=== PATIENT | male | born 1965 | race Two or more races ===

== ENCOUNTER 2022-11-26 22:48 | Inpatient (IN) | payer MEDICAID, OTHER ==
[~2022-11-26] VITALS: Ht 170.2 cm; Wt 79.1 kg
[2022-11-27] MEDS ORDERED: VANCOMYCIN 1GM/250ML 250 ML IV ONE (01:45)
[2022-11-27 02:13] LABS: Basophils # (auto) 0 10 ^3/uL (0-0.2); Basophils % (auto) 0.6 % (0.0-2.0); Eosinophils # (auto) 0.4 10 ^3/uL (0-0.8); Eosinophils % (auto) 4.9 % (0.0-7.0); Hematocrit 45.7 % (41.0-53.0); Hemoglobin 15.5 g/dL (13.5-17.5); Lymphocytes # (auto) 1.8 10 ^3/uL (0.4-5.4); Lymphocytes % (auto) 24.9 % (10.0-50.0); Mean Corpuscular Hemoglobin 31.2 pg (28.0-32.0); Mean Corpuscular Hgb Conc. 33.9 g/dL (32.0-36.0); Monocytes # (auto) 0.9 10 ^3/uL (0-1.3); Monocytes % (auto) 12.6 % (0.0-12.0); Neutrophils # (auto) 4.2 10 ^3/uL (1.6-8.6); Nucleated Red Blood Cells % 0.1 %; Red Blood Cells 4.97 10^6/uL (4.5-5.90); Red Cell Distribution Width 14.1 % (11.8-14.3); White Blood Cell 7.3 10^3/uL (4.4-10.8)
[2022-11-27 02:27] LABS: Albumin 3.3 g/dL (3.4-5.0); Calcium 9.1 mg/dL (8.5-10.1); Potassium 4.8 mmol/L (3.5-5.1)
[2022-11-27 02:36] LABS: BUN/Creatinine Ratio 16.8 (10.0-20.0); Bilirubin, Total 0.4 mg/dL (0.2-1.0); CRP High Sensitivity 3.9 mg/dL (< 0.3); Total Protein 6.8 g/dL (6.4-8.2)
[2022-11-27] MEDS ORDERED: TEMAZEPAM 15 MG CAP PO PRN (05:00)
[2022-11-27] MEDS ORDERED: ACETAMINOPHEN 325 MG TAB PO PRN (05:00)
[2022-11-27] MEDS ORDERED: ONDANSETRON HCL 4 MG/2 ML VIAL IV PRN (05:00)
[2022-11-27] MEDS ORDERED: VANCOMYCIN PER PHARMACY 0 MG IV SCH (05:30)
[2022-11-27] MEDS ORDERED: PANTOPRAZOLE 40 MG TAB PO SCH (10:00)
[2022-11-27] MEDS ORDERED: IOHEXOL 300 MG/ML 100ML BOTTLE IJ ONE (10:22)
[2022-11-27] MEDS ORDERED: levoFLOXacin 500MG 100 ML IV ONE (10:30)
[2022-11-27 17:34] VITALS: BP 139/66
[2022-11-27 17:59] VITALS: BP 139/66
[2022-11-27] MEDS: VANCOMYCIN 1GM/250ML 250 ML IV SCH (18:21)
[2022-11-27 22:00] VITALS: BP 132/86
[2022-11-28 05:00] VITALS: BP 115/81
[2022-11-28] MEDS: VANCOMYCIN 1GM/250ML 250 ML IV SCH ×2 (06:03→17:31)
[2022-11-28 06:20] LABS: Basophils # (auto) 0.1 10 ^3/uL (0-0.2); Basophils % (auto) 1.3 % (0.0-2.0); Eosinophils # (auto) 0.3 10 ^3/uL (0-0.8); Eosinophils % (auto) 5.1 % (0.0-7.0); Hematocrit 45.1 % (41.0-53.0); Hemoglobin 15.4 g/dL (13.5-17.5); Lymphocytes # (auto) 1.6 10 ^3/uL (0.4-5.4); Mean Corpuscular Hemoglobin 31.3 pg (28.0-32.0); Mean Corpuscular Hgb Conc. 34.1 g/dL (32.0-36.0); Mean Corpuscular Volume 91.7 fL (80.0-100.0); Monocytes # (auto) 0.8 10 ^3/uL (0-1.3); Monocytes % (auto) 11.9 % (0.0-12.0); Neutrophils % (auto) 58.7 % (37.0-80.0); Nucleated Red Blood Cells % 0.1 %; Red Blood Cells 4.92 10^6/uL (4.5-5.90); Red Cell Distribution Width 14.2 % (11.8-14.3); White Blood Cell 6.8 10^3/uL (4.4-10.8)
[2022-11-28 06:33] LABS: Albumin 2.9 g/dL (3.4-5.0); Calcium 8.7 mg/dL (8.5-10.1)
[2022-11-28 06:37] LABS: BUN/Creatinine Ratio 16.8 (10.0-20.0); Bilirubin, Total 0.3 mg/dL (0.2-1.0)
[2022-11-28 08:20] VITALS: BP 125/81
[2022-11-28 08:25] VITALS: BP 125/81
[2022-11-28] MEDS: levoFLOXacin 500MG 100 ML IV SCH (09:25)
[2022-11-28 12:00] VITALS: BP 126/88
[2022-11-28 17:00] VITALS: BP 126/83
[2022-11-28 22:00] VITALS: BP 131/85
[2022-11-29 05:00] VITALS: BP 115/77
[2022-11-29] MEDS: VANCOMYCIN 1GM/250ML 250 ML IV SCH (06:53)
[2022-11-29 08:00] VITALS: BP 141/78
[2022-11-29] MEDS: levoFLOXacin 500MG 100 ML IV SCH (10:09)
[2022-11-29 12:00] VITALS: BP 135/76
[2022-11-29] MEDS ORDERED: CLIN300C8 PO (13:39)
[2022-11-29] MEDS ORDERED: DOXY-340 PO (13:39)
[2022-11-29] MEDS ORDERED: VANCOMYCIN 1GM/250ML 250 ML IV SCH (16:00)
== END 2022-11-29 16:25 | disposition home or self-care (01) | DRG 383 ==
LOC: ER 22:48 → OVERFLOW 11-27 04:58 → CENTRAL 11-27 17:17
PROVIDERS: ADMIT Nurse Practitioner; ATTEND Internal Medicine
DX: L03.113 Cellulitis of right upper limb (principal); E44.1 Mild protein-calorie malnutrition; R65.10 Systemic inflammatory response syndrome (SIRS) of non-infectious origin without acute organ dysfunction; R73.03 Prediabetes; M70.21 Olecranon bursitis, right elbow; R73.9 Hyperglycemia, unspecified; F17.200 Nicotine dependence, unspecified, uncomplicated; Z68.27 Body mass index [BMI] 27.0-27.9, adult; Z83.3 Family history of diabetes mellitus; Z82.49 Family history of ischemic heart disease and other diseases of the circulatory system
CPT/HCPCS: 36415; 71045; 71260; 73200; 73218; 80053; 80202; 83036; 85025; 85652; 86141; 87040; 93971; 96365; 96367; 99291; G0378; J1956

== ENCOUNTER 2024-09-29 08:36 | Inpatient (IN) | payer MEDICAID ==
[2024-09-28 12:50] LABS: Urine Bacteria None Seen /hpf (None Seen)
[2024-09-28 13:14] LABS: Basophils # (auto) 0.3 10 ^3/uL (0-0.2); Basophils % (auto) 3.1 % (0.0-2.0); Eosinophils # (auto) 0.3 10 ^3/uL (0-0.8); Eosinophils % (auto) 3.4 % (0.0-7.0); Hematocrit 47.4 % (41.0-53.0); Hemoglobin 15.9 g/dL (13.5-17.5); Lymphocytes # (auto) 1.2 10 ^3/uL (0.4-5.4); Lymphocytes % (auto) 12.8 % (10.0-50.0); Mean Corpuscular Hemoglobin 30.7 pg (28.0-32.0); Mean Corpuscular Hgb Conc. 33.5 g/dL (32.0-36.0); Mean Corpuscular Volume 91.6 fL (80.0-100.0); Monocytes # (auto) 0.7 10 ^3/uL (0-1.3); Monocytes % (auto) 7.7 % (0.0-12.0); Nucleated Red Blood Cells % 0.1 %; Platelet Count (auto) 222 10^3/uL (140-450); Red Blood Cells 5.17 10^6/uL (4.5-5.90); Red Cell Distribution Width 14.5 % (11.8-14.3); White Blood Cell 9.6 10^3/uL (4.4-10.8)
[2024-09-28 13:26] LABS: INR 0.97 (0.9-1.15); Partial Thromboplastin Time 27.2 SEC (24.5-34.5); Prothrombin Time 10.3 sec (9.3-11.8)
[2024-09-28 13:29] LABS: Albumin 4.3 g/dL (3.2-4.8); Anion Gap 5 (5-15); BUN/Creatinine Ratio 19.5 (10.0-20.0); Blood Urea Nitrogen 15 mg/dL (9-23); Calcium 10.2 mg/dL (8.7-10.4); Carbon Dioxide 28 mmol/L (20-31); Chloride 103 mmol/L (98-107); Glucose 97 mg/dL (74-106); Sodium 136 mmol/L (136-145); Urine Blood Negative /uL (Negative); Urine Clarity Clear (Clear); Urine Color Light-Yellow (Yellow); Urine Protein, UAD Negative (Negative); Urine Specific Gravity 1.017 (1.001-1.035); Urine Squamous Epithelial Cell None Seen /hpf (<5); Urine Urobilinogen Normal (Negative); Urine WBC < 1 /HPF (0-3); Urine pH 5.5 (5.0-9.0)
[2024-09-28 13:30] LABS: Bilirubin, Total 0.5 mg/dL (0.2-1.0); Total Protein 6.8 g/dL (5.7-8.2)
[2024-09-28 13:37] LABS: Alanine Aminotransferase 83 U/L (7-40); Alkaline Phosphatase 252 U/L (46-116); Aspartate Aminotransferase 55 U/L (13-40); Potassium 5.4 mmol/L (3.5-5.1)
[2024-09-29] VITALS (8 sets, daily range): BP systolic 132–139; BP diastolic 88–94; PULSE 58–105; RESP 14–20; TEMP 97.7–98.7; O2SAT 94–100
[~2024-09-29] VITALS: Ht 170.2 cm; Wt 76.0 kg
[~2024-09-29 08:36] MED LIST: IBUP-1453 PO
[2024-09-29] MEDS ORDERED: LIDOCAINE 1% INJ PF 5ML AMP ONE (10:11)
[2024-09-29] MEDS ORDERED: MIDAZOLAM HCL 2MG/2ML 2ml VIAL (1mg/ml) ONE (10:11)
[2024-09-29] MEDS ORDERED: fentaNYL CITRATE 100 MCG/2 ML VL ONE (10:11)
[2024-09-29] MEDS ORDERED: ONDANSETRON HCL 4 MG/2 ML VIAL ONE (10:11)
[2024-09-29] MEDS ORDERED: PROPOFOL 10 MG/ML 20 ML IV ONE (10:11)
[2024-09-29] MEDS ORDERED: SODIUM CHLORIDE LOCK 10 ML ONE (10:11)
[2024-09-29] MEDS ORDERED: KETAMINE 50mg/ML 1ml syringe ONE (10:11)
[2024-09-29] MEDS ORDERED: MEPERIDINE HCL (25 MG/ML) 1ML VIAL ONE (10:12)
[2024-09-29] MEDS ORDERED: HYDROmorphone HCL 2 MG/ML VL/or syr IV PRN (10:30)
[2024-09-29] MEDS ORDERED: MORPHINE SULFATE INJ 2 MG/ml SYRG IV PRN ×2 (10:30→13:00)
[2024-09-29] MEDS ORDERED: MORPHINE SULFATE 4 MG/ML SYR/VIAL IV PRN (10:30)
[2024-09-29] MEDS: ceFAZolin 2 GM/D5W100ml 100 ML IV ONE (10:40)
[2024-09-29] MEDS: LIDOCAINE W/ EPINEPHRINE 1% 20ML VIAL ONE (11:35)
--- NOTE | 2024-09-29 12:02 | DVHOP2 ---
Operative Report - 2 Report Details Date: 09/29/24 Preop Diagnosis: Right distal radius fracture Postop Diagnosis: same Surgeon: Sony Patel MD Tapper Supervisor: none Anesthesiologist: Dr Fernández Anesthesia: General Drains: none Implant: volar distal radius plate Consent: The patient was informed of the risks and benefits of the procedure. These include but are not limited to complications of anesthesia, postoperative infection, incomplete relief of symptoms, recurrence of symptoms, damage to blood vessels, nerves and tendons, deep venous thrombosis, pulmonary embolism and possible need for repeat surgery in the future. 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 OA without fixation Name of Procedure Performed Open reduction internal fixation of right distal radius fracture Procedure Details Procedure Details: Patient brought in the operating room received Ancef 1 g IV piggyback preoperatively general anesthesia nonsterile tourniquet right arm sterile prep and drape right upper extremity time-out performed comprehension right-sided correct site open reduction internal fixation right distal radius fracture correct procedure after review of operative consent history and physical my initials on right wrist exsanguination with Esmarch tourniquet elevated to 250 mm of mercury total tourniquet time 30 minutes longitudinal incision made over volar aspect of wrist over FCR tendon sharp dissection through skin down to subcutaneous tissue blunt dissection down to the interval between FCR and common flexors FCR retracted radially common flexors retracted ulnarly exposing pron ator quadratus which was elevated off the distal volar aspect of the distal radius exposing fracture and fracture was seen to be grossly short dorsally displaced and dorsally angulated with roughly 1 cm to 2 cm of shortening osteotome was tapped through the fracture site given that the fracture is 5-week-old and then the the acetone was levered to restore the length of the distal radius as well as dorsal volar angle two K-wires were placed from radial styloid into shaft to hold styloid in place and a volar plate with three distal screws and three proximal screws was placed to hold punch fragment and placed punch fragment was seen to have anatomic alignment screws was seen to not be in the joint and no crepitus with passive range of motion tourniquet let down excellent hemostasis noted closure subcutaneous 2-0 Vicryl skin meagan fluffs ABD single sugar-tong splint Specimen: none Condition Stable Disposition Home SONY PATEL MD Sep 29, 2024 12:02
[2024-09-29] MEDS: HYDROmorphone HCL 2 MG/ML VL/or syr IV PRN (12:20)
[2024-09-29] MEDS ORDERED: NITROGLYCERIN 0.4 MG SL TAB SL PRN (13:00)
[2024-09-29] MEDS ORDERED: ONDANSETRON HCL 4 MG/2 ML VIAL IV PRN (13:15)
--- NOTE | 2024-09-29 14:24 | DVHHP2 ---
Review of Systems Allergies: Coded Allergies: NO KNOWN ALLERGIES (Unverified , 11/26/22) Medications Current Medications Medications Dose Ordered Sig/Aubree Route Start Time Stop Time Status Last Admin Dose Admin Morphine Sulfate 2 mg Q4H PRN IV 09/29/24 10:30 09/29/24 14:31 Nitroglycerin 0.4 mg Q5MINP PRN SL 09/29/24 13:00 Morphine Sulfate 2 mg Q30M PRN IV 09/29/24 13:00 Potassium Chloride/Dextrose/ Sod Cl 1,000 ml @ 150 mls/hr Q6H40M IV 09/29/24 13:15 UNV Cefazolin Sodium 50 ml @ 50 mls/hr Q8HR IV 09/29/24 14:00 09/29/24 22:59 UNV Ondansetron HCl 4 mg Q4HP PRN IV 09/29/24 13:15 Exam Vital Signs Vital Signs Date Time Temp Pulse Resp B/P (MAP) Pulse Ox O2 Delivery O2 Flow Rate FiO2 09/29/24 13:08 71 14 131/89 09/29/24 12:15 95 09/29/24 11:45 97.2 97.2 09/29/24 11:45 Nasal Cannula 5.0 97 Labs/Xrays Labs Test 09/28/24 12:45 Range/Units White Blood Count 9.6 4.4-10.8 10^3/uL Red Blood Count 5.17 4.5-5.90 10^6/uL Hemoglobin 15.9 13.5-17.5 g/dL Hematocrit 47.4 41.0-53.0 % Mean Corpuscular Volume 91.6 80.0-100.0 fL Mean Corpuscular Hemoglobin 30.7 28.0-32.0 pg Mean Corpuscular Hemoglobin Concent 33.5 32.0-36.0 g/dL Red Cell Distribution Width 14.5 H 11.8-14.3 % Platelet Count 222 140-450 10^3/uL Mean Platelet Volume 8.5 6.9-10.8 fL Neutrophils (%) (Auto) 73.0 37.0-80.0 % Lymphocytes (%) (Auto) 12.8 10.0-50.0 % Monocytes (%) (Auto) 7.7 0.0-12.0 % Eosinophils (%) (Auto) 3.4 0.0-7.0 % Basophils (%) (Auto) 3.1 H 0.0-2.0 % Neutrophils # (Auto) 7.0 1.6-8.6 10 ^3/uL Lymphocytes # (Auto) 1.2 0.4-5.4 10 ^3/uL Monocytes # (Auto) 0.7 0-1.3 10 ^3/uL Eosinophils # (Auto) 0.3 0-0.8 10 ^3/uL Basophils # (Auto) 0.3 H 0-0.2 10 ^3/uL Nucleated Red Blood Cells 0.1 % Prothrombin Time 10.3 9.3-11.8 sec Prothrombin Time INR 0.97 0.9-1.15 Activated Partial Thromboplast Time 27.2 24.5-34.5 SEC Urine Color Light-yellow Yellow Urine Clarity Clear Clear Urine pH 5.5 5.0-9.0 Urine Specific [place] 1.017 1.001-1.035 Urine Protein Negative Negative Urine Ketones Negative Negative Urine Blood Negative Negative /uL Urine Nitrite Negative Negative Urine Bilirubin Negative Negative Urine Urobilinogen Normal Negative mg/dL Urine Leukocyte Esterase Negative Negative /uL Urine RBC <1 0 - 3 /hpf Urine Microscopic WBC < 1 0-3 /HPF Urine Squamous Epithelial Cells None seen <5 /hpf Urine Bacteria None seen None Seen /hpf Urine Glucose Normal Normal mg/dL Sodium Level 136 136-145 mmol/L Potassium Level 5.4 H 3.5-5.1 mmol/L Chloride Level 103 98-107 mmol/L Carbon Dioxide Level 28 20-31 mmol/L Anion Gap 5 5-15 Blood Urea Nitrogen 15 9-23 mg/dL Creatinine 0.77 0.700-1.30 mg/dL Glomerular Filtration Rate Calc 103 >90 mL/min BUN/Creatinine Ratio 19.5 10.0-20.0 Serum Glucose 97 74-106 mg/dL Calcium Level 10.2 8.7-10.4 mg/dL Total Bilirubin 0.5 0.2-1.0 mg/dL Aspartate Amino Transferase (AST) 55 H 13-40 U/L Alanine Aminotransferase (ALT) 83 H 7-40 U/L Alkaline Phosphatase 252 H 46-116 U/L Total Protein 6.8 5.7-8.2 g/dL Albumin 4.3 3.2-4.8 g/dL Assessment/Plan Assessment/Plan see dictated note Plan discussed with: Patient Date of Service: Sep 29, 2024 Billing Provider: ALVERTO MOJICA MD Common Visit Codes: [id number] INP/OBS CARE (HIGH) Secondary Visit Codes: [id number] CHNG SMOKING >10MIN ALVERTO MOJICA MD Sep 29, 2024 14:24
[2024-09-29] MEDS ORDERED: KETOROLAC TROMETH 30 MG/ML 1ML VIAL IV PRN (14:30)
[2024-09-29] MEDS: METOCLOPRAMIDE HCL 5MG/ml INJ 2ml VIAL IV ONE (14:37)
[2024-09-29] MEDS: KETOROLAC TROMETH 30 MG/ML 1ML VIAL IV ONE (14:37)
--- NOTE | 2024-09-29 14:41 | DVHHP ---
ADMIT DATE: 09/29/2024 HISTORY OF PRESENT ILLNESS: The patient is a 59-year-old gentleman who has been admitted after he underwent surgery on the right distal radius mainly for pain control. The patient has severe pain at this time. No history of chest pain or shortness of breath. No nausea or vomiting. REVIEW OF SYSTEMS: Otherwise currently negative. PAST MEDICAL HISTORY: No significant illness in the past. MEDICATIONS: He takes ibuprofen as needed. ALLERGIES: No known drug allergies. SOCIAL HISTORY: Smokes tobacco. Occasional alcohol. FAMILY HISTORY: Negative. PHYSICAL EXAMINATION: GENERAL: The patient is awake, alert. VITAL SIGNS: Temperature of 97.2, pulse 55 per minute, blood pressure 105/52. SHEENT: Unremarkable. NECK: There is no JVD. No pedal edema. LUNGS: Equal bilaterally. No added sounds. CARDIOVASCULAR: S1, S2 is regular. No murmurs. ABDOMEN: Soft. There is no organomegaly. NEUROLOGIC: Nonfocal. MUSCULOSKELETAL: The right forearm is currently in a dressing. ASSESSMENT AND PLAN: * Tobacco abuse. The patient was advised to quit. He refuses a nicotine patch. Time spent was 11 minutes. * Status post surgery for right distal radial fracture. The patient will be placed on intravenous pain medications and will be followed up by Dr. Vang. MD KELLIE Winter/HANY TID: [id number] RECEIPT: [id number]
--- NOTE | 2024-09-29 14:43 | DVH ---
FLUOROSCOPY TIME: 24.96 TECHNIQUE: Intraoperative radiographs of the right wrist were obtained. COMPARISON: None FINDINGS: Refer to intraoperative report for further evaluation. IMPRESSION: Refer to intraoperative report for further evaluation.
--- NOTE | 2024-09-29 14:57 | DVH ---
FLUOROSCOPY TIME: 24 seconds TECHNIQUE: Intraoperative radiographs of the right wrist were obtained. COMPARISON: None FINDINGS: Refer to intraoperative report for further evaluation. IMPRESSION: Refer to intraoperative report for further evaluation.
[2024-09-29] MEDS: D5W/SOD CHL 0.45%/KCL 20MEQ 1,000 ML IV SCH (15:07)
[2024-09-29] MEDS: ceFAZolin 1GM/50ML 50 ML IV SCH (15:07)
[2024-09-29 16:02] LABS: Chloride 104 mmol/L (98-107)
[2024-09-29 16:03] LABS: Anion Gap 6 (5-15); Calcium 9.1 mg/dL (8.7-10.4); Carbon Dioxide 25 mmol/L (20-31)
[2024-09-29 16:08] LABS: BUN/Creatinine Ratio 15.6 (10.0-20.0); Blood Urea Nitrogen 15 mg/dL (9-23)
[2024-09-29 16:10] LABS: Glucose 306 mg/dL (74-106); Sodium 135 mmol/L (136-145)
[2024-09-29] MEDS: ALBUTEROL SULF 2.5 MG/0.5ML(0.5%) NEB SOLN NEB ONE (16:59)
[2024-09-29] MEDS: SODIUM CHLORIDE 0.9% 1,000 ML IV SCH (17:10)
[2024-09-29] MEDS: CALCIUM GLUC 1,000mg/50ml-NS 50 ML IV ONE (17:15)
[2024-09-29] MEDS: KETOROLAC TROMETH 30 MG/ML 1ML VIAL IV PRN (17:22)
[2024-09-29] MEDS ORDERED: IBUPROFEN 600 MG TAB PO PRN (21:15)
[2024-09-29] MEDS: SODIUM ZIRCONIUM CYCL 10 GM PAK PO SCH (21:44)
[2024-09-29] MEDS: HYDROcodone-ACET 5/325MG TAB PO PRN (21:49)
[2024-09-29] MEDS ORDERED: SODIUM ZIRCONIUM CYCL 10 GM PAK PO SCH (22:00)
[2024-09-29] MEDS: IBUPROFEN 600 MG TAB PO PRN (23:22)
[2024-09-30 01:00] VITALS: BP 141/89; PULSE 90; RESP 18; TEMP 99; O2SAT 93
[2024-09-30 05:54] LABS: Basophils # (auto) 0.1 10 ^3/uL (0-0.2); Basophils % (auto) 0.8 % (0.0-2.0); Eosinophils # (auto) 0.3 10 ^3/uL (0-0.8); Eosinophils % (auto) 3.3 % (0.0-7.0); Hematocrit 42.5 % (41.0-53.0); Hemoglobin 13.9 g/dL (13.5-17.5); Lymphocytes # (auto) 1.8 10 ^3/uL (0.4-5.4); Lymphocytes % (auto) 18.6 % (10.0-50.0); Mean Corpuscular Hemoglobin 29.9 pg (28.0-32.0); Mean Corpuscular Hgb Conc. 32.7 g/dL (32.0-36.0); Mean Corpuscular Volume 91.7 fL (80.0-100.0); Monocytes # (auto) 1.1 10 ^3/uL (0-1.3); Neutrophils # (auto) 6.3 10 ^3/uL (1.6-8.6); Neutrophils % (auto) 65.3 % (37.0-80.0); Nucleated Red Blood Cells % 0.2 %; Platelet Count (auto) 203 10^3/uL (140-450); Red Blood Cells 4.63 10^6/uL (4.5-5.90); White Blood Cell 9.6 10^3/uL (4.4-10.8)
[2024-09-30 06:21] LABS: Albumin 3.7 g/dL (3.2-4.8); Anion Gap 7 (5-15); BUN/Creatinine Ratio 14.5 (10.0-20.0); Blood Urea Nitrogen 12 mg/dL (9-23); Calcium 9.5 mg/dL (8.7-10.4); Carbon Dioxide 25 mmol/L (20-31); Chloride 106 mmol/L (98-107); Glucose 95 mg/dL (74-106); Potassium 4.4 mmol/L (3.5-5.1); Sodium 138 mmol/L (136-145)
[2024-09-30 06:22] LABS: Bilirubin, Total 0.4 mg/dL (0.2-1.0); Total Protein 5.7 g/dL (5.7-8.2)
[2024-09-30 06:33] LABS: Alanine Aminotransferase 98 U/L (7-40); Alkaline Phosphatase 204 U/L (46-116); Aspartate Aminotransferase 50 U/L (13-40)
[2024-09-30 08:00] VITALS: PULSE 70; PULSE 82; RESP 18; O2SAT 98
[2024-09-30 09:00] VITALS: BP 133/85; PULSE 75; RESP 18; TEMP 98.1; O2SAT 94
[2024-09-30 09:49] LABS: Benzodiazephine Screen, Urine Pos (NEGATIVE); Opiate Scree,Urine Neg (NEGATIVE)
[2024-09-30 09:51] LABS: Amphetamine Screen, Urine Pos (NEGATIVE); Barbiturate Scree,Urine Neg (NEGATIVE); Cannabinoid Screen, Urine Neg (NEGATIVE); Cocaine Screen, Urine Neg (NEGATIVE); Phencyclidine Screen, Urine Neg (NEGATIVE)
[2024-09-30 12:43] VITALS: BP 142/85; PULSE 64; RESP 18; TEMP 98.3; O2SAT 97
--- NOTE | 2024-09-30 13:01 | DVHPN2 ---
Date of Progress Note Date of Progress Note Date of Progress Note: 09/30/24 Date of Admission Date of Admission Date of Admission: Date of Admission: Sep 29, 2024 at 13:04 Overnight Events Overnight events Overnight Events Pt alejandra pain on PO meds, able to void, BM Family History Family History Family History: Diabetes mellitus G8 FATHER Hypertension G8 FATHER Allergies: Coded Allergies: NO KNOWN ALLERGIES (Unverified , 11/26/22) Home Meds Reported Medications Ibuprofen (Ibuprofen) 400 Mg Tab, 400 MG PO PRN, TAB 09/28/24 Current Medications Current Medications Medications (Trade) Dose Ordered Sig/Aubree Route PRN Reason Start Time Stop Time Status Last Admin Nitroglycerin (Ntrostat Sublingual) 0.4 mg Q5MINP PRN SL FOR CHEST PAIN 09/29/24 13:00 Morphine Sulfate 2 mg Q30M PRN IV FOR CHEST PAIN 09/29/24 13:00 Potassium Chloride/Dextrose/ Sod Cl 1,000 ml @ 150 mls/hr Q6H40M IV 09/29/24 13:15 09/29/24 16:46 DC 09/29/24 15:07 Cefazolin Sodium 50 ml @ 50 mls/hr Q8HR IV 09/29/24 14:00 09/29/24 22:59 DC 09/29/24 21:44 Ondansetron HCl (Zofran) 4 mg Q4HP PRN IV NAUSEA / VOMITING 09/29/24 13:15 Acetaminophen/ Hydrocodone Bitart (Vonore 5/325MG Tab) 1 tab Q6HPRN PRN PO MODERATE PAIN (4-6 PAIN SCALE) 09/29/24 14:30 09/29/24 21:49 Ketorolac Tromethamine (Toradol Injection) 15 mg Q6HPRN PRN IV MODERATE PAIN (4-6 PAIN SCALE) 09/29/24 14:30 09/29/24 14:50 DC Ketorolac Tromethamine (Toradol Injection) 15 mg Q6HPRN PRN IV SEVERE PAIN (7-10 PAIN SCALE) 09/29/24 15:00 10/04/24 14:29 09/30/24 10:50 Sodium Chloride 1,000 ml @ 100 mls/hr Q10H IV 09/29/24 16:45 09/30/24 02:45 Zirconium Oxide (Lokelma) 10 gm Q8HR PO 09/29/24 22:00 UNV Zirconium Oxide (Lokelma) 10 gm Q8HR PO 09/29/24 22:00 09/30/24 15:00 09/29/24 21:44 Ibuprofen (Motrin Tablet) 600 mg Q8HP PRN PO MODERATE PAIN (4-6 PAIN SCALE) 09/29/24 21:15 09/29/24 22:56 DC Ibuprofen (Motrin Tablet) 600 mg Q6HP PRN PO MILD PAIN (1-3 PAIN SCALE) 09/29/24 22:45 09/30/24 06:35 Physical Examination General Examination: Last Vital sign Vital Signs Date Time Temp Pulse Resp B/P (MAP) Pulse Ox O2 Delivery O2 Flow Rate FiO2 09/30/24 12:43 98.3 64 18 142/85 (104) 97 98.3 09/30/24 08:00 Room Air* 0 21 General: General: No apparent distress, appears comfortable. Cooperative. Extremities: Right wrist hand, moderate swelling, good capp refill all fingers, NVI all fingers Skin: no drainage Neurological Examination: Neurological Examination: Mental Status: Cranial Nerves: Motor Examination: Reflexes: Sensory: Coordination: Gait: NVI Labs: Labs: Laboratory Tests Test 09/28/24 12:45 09/29/24 15:23 09/29/24 18:19 09/30/24 04:53 Range/Units White Blood Count 9.6 9.6 4.4-10.8 10^3/uL Red Blood Count 5.17 4.63 4.5-5.90 10^6/uL Hemoglobin 15.9 13.9 13.5-17.5 g/dL Hematocrit 47.4 42.5 # 41.0-53.0 % Mean Corpuscular Volume 91.6 91.7 80.0-100.0 fL Mean Corpuscular Hemoglobin 30.7 29.9 28.0-32.0 pg Mean Corpuscular Hemoglobin Concent 33.5 32.7 32.0-36.0 g/dL Red Cell Distribution Width 14.5 H 15.0 H 11.8-14.3 % Platelet Count 222 203 140-450 10^3/uL Mean Platelet Volume 8.5 8.7 6.9-10.8 fL Neutrophils (%) (Auto) 73.0 65.3 37.0-80.0 % Lymphocytes (%) (Auto) 12.8 18.6 10.0-50.0 % Monocytes (%) (Auto) 7.7 12.0 0.0-12.0 % Eosinophils (%) (Auto) 3.4 3.3 0.0-7.0 % Basophils (%) (Auto) 3.1 H 0.8 0.0-2.0 % Neutrophils # (Auto) 7.0 6.3 1.6-8.6 10 ^3/uL Lymphocytes # (Auto) 1.2 1.8 0.4-5.4 10 ^3/uL Monocytes # (Auto) 0.7 1.1 0-1.3 10 ^3/uL Eosinophils # (Auto) 0.3 0.3 0-0.8 10 ^3/uL Basophils # (Auto) 0.3 H 0.1 0-0.2 10 ^3/uL Nucleated Red Blood Cells 0.1 0.2 % Prothrombin Time 10.3 9.3-11.8 sec Prothrombin Time INR 0.97 0.9-1.15 Activated Partial Thromboplast Time 27.2 24.5-34.5 SEC Urine Color Light-yellow Yellow Urine Clarity Clear Clear Urine pH 5.5 5.0-9.0 Urine Specific [place] 1.017 1.001-1.035 Urine Protein Negative Negative Urine Ketones Negative Negative Urine Blood Negative Negative /uL Urine Nitrite Negative Negative Urine Bilirubin Negative Negative Urine Urobilinogen Normal Negative mg/dL Urine Leukocyte Esterase Negative Negative /uL Urine RBC <1 0 - 3 /hpf Urine Microscopic WBC < 1 0-3 /HPF Urine Squamous Epithelial Cells None seen <5 /hpf Urine Bacteria None seen None Seen /hpf Urine Glucose Normal Normal mg/dL Sodium Level 136 135 L 138 136-145 mmol/L Potassium Level 5.4 H 6.0 *H 4.4 3.5-5.1 mmol/L Chloride Level 103 104 106 98-107 mmol/L Carbon Dioxide Level 28 25 25 20-31 mmol/L Anion Gap 5 6 7 5-15 Blood Urea Nitrogen 15 15 12 9-23 mg/dL Creatinine 0.77 0.96 0.83 0.700-1.30 mg/dL Glomerular Filtration Rate Calc 103 91 101 >90 mL/min BUN/Creatinine Ratio 19.5 15.6 14.5 10.0-20.0 Serum Glucose 97 306 #H 95 # 74-106 mg/dL Calcium Level 10.2 9.1 9.5 8.7-10.4 mg/dL Total Bilirubin 0.5 0.4 0.2-1.0 mg/dL Aspartate Amino Transferase (AST) 55 H 50 H 13-40 U/L Alanine Aminotransferase (ALT) 83 H 98 H 7-40 U/L Alkaline Phosphatase 252 H 204 H 46-116 U/L Total Protein 6.8 5.7 5.7-8.2 g/dL Albumin 4.3 3.7 3.2-4.8 g/dL Plasma/Serum Blood Alcohol < 3.0 <10 mg/dL Test 09/30/24 09:27 Range/Units Urine Opiates Screen Neg NEGATIVE Urine Fentanyl Screen Pos NEGATIVE Urine Barbiturates Screen Neg NEGATIVE Urine Phencyclidine Screen Neg NEGATIVE Urine Amphetamines Screen Pos NEGATIVE Urine Benzodiazepines Screen Pos NEGATIVE Urine Cocaine Screen Neg NEGATIVE Urine Cannabinoids Screen Neg NEGATIVE Assessment/Plan Assessment/Plan Assessment and Plan:Dom Campbell is a 59 year old male POD 1 s/p ORIF right distal radius fracture 1) clear for dc from orthou view 2) follow up ortho clinic two weeks Plan discussed with: Patient RYAN PATEL MD Sep 30, 2024 13:01
--- NOTE | 2024-09-30 14:05 | DVHDS2 ---
Discharge Summary Date of Admission Sep 29, 2024 at 13:04 Date of Discharge: Sep 30, 2024 Labs/Diagnostic Data: Laboratory Results Test 09/30/24 09:27 09/30/24 04:53 09/29/24 18:19 09/28/24 12:45 Urine Opiates Screen Neg (NEGATIVE) Urine Fentanyl Screen Pos (NEGATIVE) Urine Barbiturates Screen Neg (NEGATIVE) Urine Phencyclidine Screen Neg (NEGATIVE) Urine Amphetamines Screen Pos (NEGATIVE) Urine Benzodiazepines Screen Pos (NEGATIVE) Urine Cocaine Screen Neg (NEGATIVE) Urine Cannabinoids Screen Neg (NEGATIVE) White Blood Count 9.6 10^3/uL (4.4-10.8) Red Blood Count 4.63 10^6/uL (4.5-5.90) Hemoglobin 13.9 g/dL (13.5-17.5) Hematocrit 42.5 % (41.0-53.0) Mean Corpuscular Volume 91.7 fL (80.0-100.0) Mean Corpuscular Hemoglobin 29.9 pg (28.0-32.0) Mean Corpuscular Hemoglobin Concent 32.7 g/dL (32.0-36.0) Red Cell Distribution Width 15.0 % (11.8-14.3) Platelet Count 203 10^3/uL (140-450) Mean Platelet Volume 8.7 fL (6.9-10.8) Neutrophils (%) (Auto) 65.3 % (37.0-80.0) Lymphocytes (%) (Auto) 18.6 % (10.0-50.0) Monocytes (%) (Auto) 12.0 % (0.0-12.0) Eosinophils (%) (Auto) 3.3 % (0.0-7.0) Basophils (%) (Auto) 0.8 % (0.0-2.0) Neutrophils # (Auto) 6.3 10 ^3/uL (1.6-8.6) Lymphocytes # (Auto) 1.8 10 ^3/uL (0.4-5.4) Monocytes # (Auto) 1.1 10 ^3/uL (0-1.3) Eosinophils # (Auto) 0.3 10 ^3/uL (0-0.8) Basophils # (Auto) 0.1 10 ^3/uL (0-0.2) Nucleated Red Blood Cells 0.2 % Sodium Level 138 mmol/L (136-145) Potassium Level 4.4 mmol/L (3.5-5.1) Chloride Level 106 mmol/L (98-107) Carbon Dioxide Level 25 mmol/L (20-31) Anion Gap 7 (5-15) Blood Urea Nitrogen 12 mg/dL (9-23) Creatinine 0.83 mg/dL (0.700-1.30) Glomerular Filtration Rate Calc 101 mL/min (>90) BUN/Creatinine Ratio 14.5 (10.0-20.0) Serum Glucose 95 mg/dL (74-106) Calcium Level 9.5 mg/dL (8.7-10.4) Total Bilirubin 0.4 mg/dL (0.2-1.0) Aspartate Amino Transferase (AST) 50 U/L (13-40) Alanine Aminotransferase (ALT) 98 U/L (7-40) Alkaline Phosphatase 204 U/L (46-116) Total Protein 5.7 g/dL (5.7-8.2) Albumin 3.7 g/dL (3.2-4.8) Plasma/Serum Blood Alcohol < 3.0 mg/dL (<10) Prothrombin Time 10.3 sec (9.3-11.8) Prothrombin Time INR 0.97 (0.9-1.15) Activated Partial Thromboplast Time 27.2 SEC (24.5-34.5) Urine Color Light-yellow (Yellow) Urine Clarity Clear (Clear) Urine pH 5.5 (5.0-9.0) Urine Specific [place] 1.017 (1.001-1.035) Urine Protein Negative (Negative) Urine Ketones Negative (Negative) Urine Blood Negative /uL (Negative) Urine Nitrite Negative (Negative) Urine Bilirubin Negative (Negative) Urine Urobilinogen Normal mg/dL (Negative) Urine Leukocyte Esterase Negative /uL (Negative) Urine RBC <1 /hpf (0 - 3) Urine Microscopic WBC < 1 /HPF (0-3) Urine Squamous Epithelial Cells None seen /hpf (<5) Urine Bacteria None seen /hpf (None Seen) Urine Glucose Normal mg/dL (Normal) Other Laboratory Tests 09/30/24 04:53 Brief Hx & Hospital Course: see dictated note Condition at Discharge: Fair Final Diagnosis/Problems List right foream surgery Discharge Disposition: Home Discharge Instruct/Medications Diet: Regular Activity: No Restrictions, As Tolerated Follow Up/Referral: fu with ortho in 2 wks Medications: script to pharmacy Discharge Statement: "Patient was advised to return to the ER or call 911 if any headaches, dizziness, shortness of breath, chest pain, abdominal pain, bleeding, fevers, or worsening of medical condition. Patient was counseled about treatment plan, medications, possible side effects, patientverbalized understanding. All questions were answered to the best of my ability. This discharge took greater then 30 minutes in planning, reviewing documentation, counseling the patient, and discussing with other team members." ASSESSMENT ASSESSMENT Assessment right foream surgery Date of Service: Sep 30, 2024 Billing Provider: ALVERTO MOJICA MD Common Visit Codes: [id number] DISCH DAY >30min ALVERTO MOJICA MD Sep 30, 2024 14:05
[2024-09-30] MEDS ORDERED: HYDR-4072 PO (14:06)
--- NOTE | 2024-09-30 14:38 | DVHDS ---
DATE OF DISCHARGE: 09/30/2024 HISTORY OF PRESENT ILLNESS: The patient is a 59-year-old gentleman who was admitted after he underwent surgery on the right distal radius for pain control. The patient has no significant medical history. HOSPITAL COURSE: The patient had a tox screen that was positive for amphetamines and fentanyl. The patient was seen by Dr. Vang. The patient was hyperkalemic and that has since resolved. The patient also had evidence of transaminitis. The patient will now be discharged home to be on [place] p.r.n. for pain and follow up with Dr. Vang in the next 2 weeks. FINAL DIAGNOSES: Therefore, * Drug abuse with amphetamines and fentanyl. * Transaminitis. * Status post surgery for right distal radial fracture. Time spent in discharge planning and review of plan with the patient and nursing was 36 minutes. MD KELLIE Winter/MATT TID: [id number] RECEIPT: [id number]
[2024-09-30 14:40] VITALS: BP 142/85; PULSE 64; RESP 18; TEMP 98.3; O2SAT 97
== END 2024-09-30 17:37 | disposition home or self-care (01) | DRG 315 ==
LOC: SUR 08:36 → OVERFLOW 13:04 → WEST WING 14:24 → TELE-WESTW 16:51
PROVIDERS: ADMIT Internal Medicine; ATTEND Internal Medicine
PROC: 0PSH04Z Reposition Right Radius with Internal Fixation Device, Open Approach (ICD-10-PCS; principal; 2024-09-29 10:36)
DX: S52.501A Unspecified fracture of the lower end of right radius, initial encounter for closed fracture (principal); R71.0 Precipitous drop in hematocrit; E87.5 Hyperkalemia; F11.10 Opioid abuse, uncomplicated; R74.01 Elevation of levels of liver transaminase levels; W18.39XA Other fall on same level, initial encounter; F15.10 Other stimulant abuse, uncomplicated; Z79.899 Other long term (current) drug therapy; Y93.89 Activity, other specified; Y92.89 Other specified places as the place of occurrence of the external cause; Y99.8 Other external cause status; Z83.3 Family history of diabetes mellitus; Z82.49 Family history of ischemic heart disease and other diseases of the circulatory system; Z79.1 Long term (current) use of non-steroidal anti-inflammatories (NSAID); Z72.0 Tobacco use
CPT/HCPCS: 36415; 73100; 76000; 80048; 80053; 80307; 80320; 81001; 85025; 85610; 85730; 94640; G0378; J1885; J2250; J2405; J2704

== ENCOUNTER 2025-04-29 09:23 | Outpatient (CLI) | payer MEDICAID ==
[~2025-04-29 09:23] MED LIST changes: +HYDR-4072 PO
[2025-04-29 10:33] LABS: INR 1.0 (0.9-1.15); Partial Thromboplastin Time 28.3 SEC (24.5-34.5); Prothrombin Time 10.6 sec (9.3-11.8)
[2025-04-29 10:37] LABS: Hematocrit 48.7 % (41.0-53.0); Hemoglobin 16.8 g/dL (13.5-17.5); Mean Corpuscular Hemoglobin 32.0 pg (28.0-32.0); Mean Corpuscular Volume 92.8 fL (80.0-100.0); Nucleated Red Blood Cells % 0.1 %
[2025-04-29 11:00] LABS: Urine Protein, UAD Negative (Negative)
[2025-04-29 11:21] LABS: Alanine Aminotransferase 29 U/L (7-40); Albumin 4.1 g/dL (3.2-4.8); Alkaline Phosphatase 133 U/L (46-116); Anion Gap 6 (5-15); BUN/Creatinine Ratio 9.8 (10.0-20.0); Bilirubin, Total 0.3 mg/dL (0.2-1.0); Blood Urea Nitrogen 8 mg/dL (9-23); Calcium 9.3 mg/dL (8.7-10.4); Carbon Dioxide 27 mmol/L (20-31); Chloride 106 mmol/L (98-107); Glucose 92 mg/dL (74-106); Potassium 4.8 mmol/L (3.5-5.1); Sodium 139 mmol/L (136-145); Total Protein 6.8 g/dL (5.7-8.2)
[2025-04-29 11:22] LABS: Amphetamine Screen, Urine Neg (NEGATIVE)
[2025-04-29 11:25] LABS: Barbiturate Scree,Urine Neg (NEGATIVE); Benzodiazephine Screen, Urine Neg (NEGATIVE); Cannabinoid Screen, Urine Neg (NEGATIVE); Cocaine Screen, Urine Neg (NEGATIVE); Opiate Scree,Urine Neg (NEGATIVE); Phencyclidine Screen, Urine Neg (NEGATIVE)
[2025-04-29 13:18] LABS: Triglycerides 139 mg/dL (< 150)
[2025-04-29 13:20] LABS: Cholesterol 189 mg/dL (< 200)
[2025-04-29 13:22] LABS: HDL Cholesterol 64 mg/dL (40-59)
== END 2025-04-29 17:00 | disposition home or self-care (01) ==
LOC: LAB 09:23
PROVIDERS: ATTEND Licensed Practical Nurse
DX: I10 Essential (primary) hypertension (principal); E78.5 Hyperlipidemia, unspecified; E55.9 Vitamin D deficiency, unspecified; N17.0 Acute kidney failure with tubular necrosis; Z00.00 Encounter for general adult medical examination without abnormal findings; Z12.11 Encounter for screening for malignant neoplasm of colon; Z13.29 Encounter for screening for other suspected endocrine disorder
CPT/HCPCS: 36415; 80053; 80061; 80307; 81001; 82306; 83036; 84153; 84443; 85025; 85610; 85730; 86703; 86704; 86706; 86708; 86803; 87340